=== PATIENT | male | born 1945 | race Caucasian/White ===

== ENCOUNTER 2019-10-14 21:54 | Inpatient (IN) | payer MEDICARE ==
[~2019-10-14] VITALS: Ht 170.2 cm; Wt 88.3 kg
[~2019-10-14 21:54] MED LIST: DOCU-131 PO; GABA-826 PO; INSU100I18 SQ-INSULIN; LISI5TAB7 PO; METF500T17 PO; POLY17PO5 PO; SIMV20TA19 PO
--- NOTE | 2019-10-14 22:48 | NUR ---
PT HAS C/O BILATERAL LEG WEKNESS FOR THE LAST COUPLE DAYS AND MULTIPLE FALLS WITH NAUSEA. PT DENIED ANY PAIN OR TRAUMA OTHER THAN L KNEE ABRASION
[2019-10-14 23:06] LABS: BASOPHILS # (AUTO) 0.06 x10^3/uL (0-0.1); BASOPHILS % (AUTO) 0 % (0-1); EOSINOPHILS # (AUTO) 0.33 x10^3/uL (0-0.4); EOSINOPHILS % (AUTO) 2 % (1-7); LYMPHOCYTES # (AUTO) 2.41 x10^3/uL (1-3.4); LYMPHOCYTES % (AUTO) 17 % (22-44); MD NO; MEAN CORPUSCULAR HGB CONC 33.4 g/dL (33.2-36.2); MEAN PLATELET VOLUME 11.3 fL (7.4-10.4); MONOCYTES % (AUTO) 8 % (2-9); NEUTROPHILS # (AUTO) 10.46 x10^3/uL (1.8-6.8); NEUTROPHILS % (AUTO) 72 % (42-75); PLATELET COUNT 211 x10^3/uL (130-400); RED BLOOD COUNT 5.44 x10^6/uL (4.38-5.82); RED CELL DISTRIBUTION WIDTH 13.7 % (9.4-14.8)
[2019-10-14 23:10] LABS: ALANINE AMINOTRANSFERASE 17 U/L (12-78); ALBUMIN 3.8 g/dL (3.4-5.0); ANION GAP 12 mmol/L (5-15); CALCIUM 9.5 mg/dL (8.5-10.1); CHLORIDE 105 mmol/L (98-107); CREATININE 1.11 mg/dL (0.7-1.3)
[2019-10-14 23:13] LABS: ALKALINE PHOSPHATASE 76 U/L (45-117); BILIRUBIN,TOTAL 1.6 mg/dL (0.2-1.0); TOTAL PROTEIN 7.7 g/dL (6.4-8.2)
--- NOTE | 2019-10-15 00:59 | NUR ---
AT BEDSIDE DISCUSSING PLAC OF CARE
--- NOTE | 2019-10-15 01:16 | NUR ---
AWAITING ADMIT AT THIS TIME
[2019-10-15 01:17] LABS: MICROSCOPIC AUTO
--- NOTE | 2019-10-15 01:55 | NUR ---
REPORT TO ADM JOSEITING AT BEDSIDE
[2019-10-15] MEDS ORDERED: SODIUM CHLORIDE 0.9% 1,000 ML IV SCH (02:10)
[2019-10-15] MEDS ORDERED: TEMAZEPAM 15 MG CAPSULE PO PRN (02:30)
[2019-10-15] MEDS ORDERED: GUAIFENESIN/DM 200-20MG, 10ML UDC PO PRN (02:30)
[2019-10-15] MEDS ORDERED: hydrALAzine 20 MG/ML, 1ML IVPush PRN (02:30)
[2019-10-15] MEDS ORDERED: OXYcodone/APAP 5/325MG TABLET PO PRN (02:30)
[2019-10-15] MEDS ORDERED: ONDANSETRON 2MG/ML, 2ML IVPush PRN (02:30)
[2019-10-15] MEDS ORDERED: POLYETHYLENE GLYCOL 17 GM PACKET PO PRN (02:30)
[2019-10-15 02:49] VITALS: BP 148/86
[2019-10-15] MEDS: ENOXAPARIN 40 MG/0.4 ML SQ SCH (03:36)
[2019-10-15] MEDS: DOCUSATE 100 MG CAPSULE PO PRN (03:36)
[2019-10-15 07:25] VITALS: BP 116/74
[2019-10-15] MEDS ORDERED: FAMOTIDINE 40 MG TABLET ONE (08:43)
[2019-10-15] MEDS: INSULIN REGULAR 100 UNITS/ML, 3ML VIAL SQ-INSULIN SCH ×4 (08:47→22:01)
[2019-10-15] MEDS: metFORMIN 500 MG TABLET PO SCH ×2 (08:47→22:01)
[2019-10-15] MEDS: GABAPENTIN 100 MG CAPSULE PO SCH ×3 (08:48→22:01)
[2019-10-15] MEDS: FAMOTIDINE 20 MG TABLET PO SCH ×2 (08:48→22:01)
[2019-10-15] MEDS: LISINOPRIL 5 MG TABLET PO SCH (08:48)
[2019-10-15 12:21] LABS: BASOPHILS # (AUTO) 0.04 x10^3/uL (0-0.1); BASOPHILS % (AUTO) 0 % (0-1); EOSINOPHILS # (AUTO) 0.49 x10^3/uL (0-0.4); EOSINOPHILS % (AUTO) 4 % (1-7); LYMPHOCYTES # (AUTO) 2.74 x10^3/uL (1-3.4); LYMPHOCYTES % (AUTO) 23 % (22-44); MD NO; MEAN CORPUSCULAR HEMOGLOBIN 28.9 pg (27.5-34.5); MEAN CORPUSCULAR HGB CONC 33.3 g/dL (33.2-36.2); MONOCYTES # (AUTO) 1.06 x10^3/uL (0.2-0.8); MONOCYTES % (AUTO) 9 % (2-9); NEUTROPHILS % (AUTO) 64 % (42-75); PLATELET COUNT 219 x10^3/uL (130-400); RED CELL DISTRIBUTION WIDTH 13.4 % (9.4-14.8)
[2019-10-15 12:29] LABS: ANION GAP 11 mmol/L (5-15); CALCIUM 9.4 mg/dL (8.5-10.1); CHLORIDE 108 mmol/L (98-107); CREATININE 0.79 mg/dL (0.7-1.3)
[2019-10-15 13:42] VITALS: BP 104/69
[2019-10-15 19:26] VITALS: BP 117/64
[2019-10-15] MEDS: SIMVASTATIN 20 MG TABLET PO SCH (22:01)
[2019-10-16 01:13] VITALS: BP 127/76
[2019-10-16] MEDS: ENOXAPARIN 40 MG/0.4 ML SQ SCH (05:12)
[2019-10-16 05:46] LABS: BASOPHILS # (AUTO) 0.07 x10^3/uL (0-0.1); BASOPHILS % (AUTO) 1 % (0-1); EOSINOPHILS # (AUTO) 0.49 x10^3/uL (0-0.4); EOSINOPHILS % (AUTO) 5 % (1-7); LYMPHOCYTES # (AUTO) 2.22 x10^3/uL (1-3.4); LYMPHOCYTES % (AUTO) 24 % (22-44); MD NO; MEAN CORPUSCULAR HEMOGLOBIN 28.3 pg (27.5-34.5); MEAN CORPUSCULAR HGB CONC 32.4 g/dL (33.2-36.2); MEAN PLATELET VOLUME 11.4 fL (7.4-10.4); MONOCYTES # (AUTO) 0.75 x10^3/uL (0.2-0.8); MONOCYTES % (AUTO) 8 % (2-9); NEUTROPHILS # (AUTO) 5.67 x10^3/uL (1.8-6.8); NEUTROPHILS % (AUTO) 62 % (42-75); PLATELET COUNT 176 x10^3/uL (130-400); RED BLOOD COUNT 4.69 x10^6/uL (4.38-5.82); RED CELL DISTRIBUTION WIDTH 13.6 % (9.4-14.8)
[2019-10-16 05:56] LABS: ALBUMIN 3.1 g/dL (3.4-5.0); ANION GAP 6 mmol/L (5-15); CALCIUM 9.4 mg/dL (8.5-10.1); CHLORIDE 109 mmol/L (98-107)
[2019-10-16 05:57] LABS: ALANINE AMINOTRANSFERASE 18 U/L (12-78); ALKALINE PHOSPHATASE 67 U/L (45-117); BILIRUBIN,TOTAL 0.5 mg/dL (0.2-1.0); CREATININE 0.96 mg/dL (0.7-1.3); TOTAL PROTEIN 6.4 g/dL (6.4-8.2)
[2019-10-16 06:25] VITALS: BP 130/85
[2019-10-16] MEDS ORDERED: POTASSIUM CHLORIDE 20 MEQ TAB.ER.PRT PO ONE (08:30)
[2019-10-16] MEDS: INSULIN REGULAR 100 UNITS/ML, 3ML VIAL SQ-INSULIN SCH ×4 (08:38→21:45)
[2019-10-16] MEDS: LISINOPRIL 5 MG TABLET PO SCH (08:38)
[2019-10-16] MEDS: FAMOTIDINE 20 MG TABLET PO SCH ×2 (08:39→21:45)
[2019-10-16] MEDS: GABAPENTIN 100 MG CAPSULE PO SCH ×3 (08:39→21:45)
[2019-10-16] MEDS: metFORMIN 500 MG TABLET PO SCH ×2 (08:39→21:45)
[2019-10-16 12:58] VITALS: BP 149/88
[2019-10-16] MEDS: DOCUSATE 100 MG CAPSULE PO PRN (16:30)
[2019-10-16] MEDS ORDERED: BISACODYL 10 MG SUPP PR PRN (17:00)
[2019-10-16 18:57] VITALS: BP 137/84
[2019-10-16] MEDS: SIMVASTATIN 20 MG TABLET PO SCH (21:45)
[2019-10-17 00:48] VITALS: BP 148/81
[2019-10-17] MEDS: ENOXAPARIN 40 MG/0.4 ML SQ SCH (05:52)
[2019-10-17 06:35] VITALS: BP 140/68
[2019-10-17] MEDS: metFORMIN 500 MG TABLET PO SCH (08:01)
[2019-10-17] MEDS: FAMOTIDINE 20 MG TABLET PO SCH ×2 (08:01→20:36)
[2019-10-17] MEDS: GABAPENTIN 100 MG CAPSULE PO SCH ×3 (08:01→20:36)
[2019-10-17] MEDS: LISINOPRIL 5 MG TABLET PO SCH (08:02)
[2019-10-17] MEDS: INSULIN REGULAR 100 UNITS/ML, 3ML VIAL SQ-INSULIN SCH ×4 (08:02→20:37)
[2019-10-17] MEDS: MAGNESIUM CITRATE 300ML ORAL SOL PO ONE ×2 (09:51→09:53)
[2019-10-17 12:23] LABS: CHLORIDE 108 mmol/L (98-107)
[2019-10-17 12:34] LABS: ANION GAP 9 mmol/L (5-15); CALCIUM 9.5 mg/dL (8.5-10.1); CREATININE 0.74 mg/dL (0.7-1.3)
[2019-10-17] MEDS ORDERED: LACTATED RINGERS 1,000 ML IV SCH (13:00)
[2019-10-17] MEDS ORDERED: LACTULOSE 20 GM/30 ML UDC PO PRN (13:00)
[2019-10-17 14:44] VITALS: BP 132/78
[2019-10-17] MEDS ORDERED: POTASSIUM PHOSPHATE 22 MEQ in SODIUM CHLORIDE 0.9% 500 ML IV ONE (16:15)
[2019-10-17] MEDS: MAGNESIUM OXIDE 400 MG TABLET PO SCH (16:42)
[2019-10-17] MEDS: BISACODYL 10 MG SUPP PR SCH (16:43)
[2019-10-17 19:25] VITALS: BP 134/79
[2019-10-17] MEDS: SIMVASTATIN 20 MG TABLET PO SCH (20:36)
[2019-10-18 00:40] VITALS: BP 127/77
[2019-10-18] MEDS: ENOXAPARIN 40 MG/0.4 ML SQ SCH (05:45)
[2019-10-18 07:06] LABS: ANION GAP 8 mmol/L (5-15); CALCIUM 9.2 mg/dL (8.5-10.1); CHLORIDE 108 mmol/L (98-107)
[2019-10-18 07:09] LABS: CREATININE 0.75 mg/dL (0.7-1.3)
[2019-10-18 07:27] VITALS: BP 121/76
[2019-10-18] MEDS: POLYETHYLENE GLYCOL 17 GM PACKET PO SCH ×3 (08:28→20:49)
[2019-10-18] MEDS: INSULIN REGULAR 100 UNITS/ML, 3ML VIAL SQ-INSULIN SCH ×4 (08:28→21:35)
[2019-10-18] MEDS: LISINOPRIL 5 MG TABLET PO SCH (08:29)
[2019-10-18] MEDS: SENNOSIDES 8.6 MG TABLET PO SCH ×2 (08:29→21:36)
[2019-10-18] MEDS: FAMOTIDINE 20 MG TABLET PO SCH ×2 (08:29→20:48)
[2019-10-18] MEDS: GABAPENTIN 100 MG CAPSULE PO SCH ×3 (08:29→20:48)
[2019-10-18] MEDS: MAGNESIUM OXIDE 400 MG TABLET PO SCH (08:29)
[2019-10-18] MEDS: BISACODYL 10 MG SUPP PR SCH (08:29)
[2019-10-18] MEDS ORDERED: POLYETHYLENE GLYCOL 17 GM PACKET PO SCH (09:00)
[2019-10-18] MEDS ORDERED: BISACODYL 10 MG SUPP PR SCH (09:00)
[2019-10-18 13:18] VITALS: BP 120/61
[2019-10-18 20:29] VITALS: BP 145/84
[2019-10-18] MEDS: SIMVASTATIN 20 MG TABLET PO SCH (20:48)
[2019-10-18] MEDS ORDERED: INSULIN GLARGINE 100 UNITS/ML, PEN SQ-INSULIN SCH (21:00)
[2019-10-19 00:39] VITALS: BP 155/94
[2019-10-19] MEDS: ENOXAPARIN 40 MG/0.4 ML SQ SCH (05:54)
[2019-10-19 08:31] VITALS: BP 123/73
[2019-10-19] MEDS: POLYETHYLENE GLYCOL 17 GM PACKET PO SCH ×2 (08:32→20:30)
[2019-10-19] MEDS: INSULIN REGULAR 100 UNITS/ML, 3ML VIAL SQ-INSULIN SCH ×4 (08:32→20:51)
[2019-10-19] MEDS: BISACODYL 10 MG SUPP PR SCH (08:33)
[2019-10-19] MEDS: GABAPENTIN 100 MG CAPSULE PO SCH ×3 (08:33→20:30)
[2019-10-19] MEDS: LISINOPRIL 5 MG TABLET PO SCH (08:33)
[2019-10-19] MEDS: FAMOTIDINE 20 MG TABLET PO SCH ×2 (08:33→20:28)
[2019-10-19] MEDS: MAGNESIUM OXIDE 400 MG TABLET PO SCH (08:33)
[2019-10-19] MEDS: SENNOSIDES 8.6 MG TABLET PO SCH ×2 (08:33→20:29)
[2019-10-19 13:51] VITALS: BP 111/68
[2019-10-19] MEDS ORDERED: SENN-99 PO (17:42)
[2019-10-19] MEDS ORDERED: INSU100I13 SQ-INSULIN (17:42)
[2019-10-19] MEDS ORDERED: POLY17PO5 PO (17:42)
[2019-10-19] MEDS ORDERED: BISA10SU4 PR (17:42)
[2019-10-19] MEDS ORDERED: INSU100V5 SQ-INSULIN (17:42)
[2019-10-19] MEDS ORDERED: TRAM50TA2 PO (17:42)
[2019-10-19] MEDS ORDERED: FAMO20TA7 PO (17:42)
[2019-10-19] MEDS ORDERED: ENOX40SY4 SQ (17:42)
[2019-10-19] MEDS ORDERED: MAGN400T50 PO (17:42)
[2019-10-19 19:25] VITALS: BP 125/73
[2019-10-19] MEDS: SIMVASTATIN 20 MG TABLET PO SCH (20:30)
[2019-10-19] MEDS ORDERED: INSULIN GLARGINE 100 UNITS/ML, PEN SQ-INSULIN SCH (21:00)
[2019-10-20 01:19] VITALS: BP 119/66
[2019-10-20] MEDS: ENOXAPARIN 40 MG/0.4 ML SQ SCH (05:56)
[2019-10-20 06:58] VITALS: BP 145/84
[2019-10-20] MEDS: INSULIN REGULAR 100 UNITS/ML, 3ML VIAL SQ-INSULIN SCH ×3 (07:59→16:00)
[2019-10-20] MEDS: SENNOSIDES 8.6 MG TABLET PO SCH (08:48)
[2019-10-20] MEDS: POLYETHYLENE GLYCOL 17 GM PACKET PO SCH (08:48)
[2019-10-20] MEDS: BISACODYL 10 MG SUPP PR SCH (08:48)
[2019-10-20] MEDS ORDERED: INSULIN GLARGINE 100 UNITS/ML, PEN SQ-INSULIN SCH ×2 (09:00→21:00)
[2019-10-20] MEDS: FAMOTIDINE 20 MG TABLET PO SCH (09:02)
[2019-10-20] MEDS: GABAPENTIN 100 MG CAPSULE PO SCH ×2 (09:02→15:43)
[2019-10-20] MEDS: MAGNESIUM OXIDE 400 MG TABLET PO SCH (09:02)
[2019-10-20] MEDS: LISINOPRIL 5 MG TABLET PO SCH (09:03)
[2019-10-20] MEDS ORDERED: INSU100I13 SQ-INSULIN ×2 (10:20)
[2019-10-20 13:50] VITALS: BP 145/81
== END 2019-10-20 16:31 | DRG 73 ==
LOC: ED 10-15 01:14 → EDIP 10-15 01:34 → 3N 10-15 02:21
PROVIDERS: ADMIT Internal Medicine; ATTEND Internal Medicine
DX: E11.42 Type 2 diabetes mellitus with diabetic polyneuropathy (principal); N17.0 Acute kidney failure with tubular necrosis; E87.2 Acidosis; E87.1 Hypo-osmolality and hyponatremia; E86.0 Dehydration; R62.7 Adult failure to thrive; E87.6 Hypokalemia; D72.829 Elevated white blood cell count, unspecified; E78.5 Hyperlipidemia, unspecified; I10 Essential (primary) hypertension; E11.65 Type 2 diabetes mellitus with hyperglycemia; E83.39 Other disorders of phosphorus metabolism; K31.84 Gastroparesis; K59.09 Other constipation; R29.6 Repeated falls; M21.372 Foot drop, left foot; E86.9 Volume depletion, unspecified; S80.02XA Contusion of left knee, initial encounter; Z79.84 Long term (current) use of oral hypoglycemic drugs; E80.6 Other disorders of bilirubin metabolism; Z90.89 Acquired absence of other organs; W10.9XXA Fall (on) (from) unspecified stairs and steps, initial encounter; Y93.89 Activity, other specified; Y92.009 Unspecified place in unspecified non-institutional (private) residence as the place of occurrence of the external cause; Y99.0 Civilian activity done for income or pay; Z87.19 Personal history of other diseases of the digestive system; Z68.30 Body mass index [BMI] 30.0-30.9, adult
CPT/HCPCS: 36415; 74018; 80048; 80053; 81001; 82607; 82962; 83036; 83605; 83735; 84100; 84443; 85025; 93005; 96374; 99285; G0378; J1650; J1815; J2405; J7030; J7040; J7120